=== PATIENT | female | born 1960 | race Caucasian/White ===

== ENCOUNTER 2021-03-02 17:50 | Inpatient (IN) | payer BC ==
[~2021-03-02] VITALS: Ht 157.5 cm; Wt 60.8 kg
--- NOTE | 2021-03-02 17:50 | NUR ---
1st contact with patient, AOx4, respiration:easy, c/o severe anterior chest pains after an argument with a family member. [email or web address]. EKG done.
[2021-03-02] MEDS ORDERED: NITROGLYCERIN 0.4 MG/TAB BOTTLE SL ONE ×2 (18:00→18:25)
[2021-03-02] MEDS ORDERED: ASPIRIN 325 MG TABLET PO ONE (18:00)
[2021-03-02] MEDS ORDERED: ONDANSETRON 4 MG/2 ML VIAL IV ONE (18:00)
[2021-03-02] MEDS ORDERED: MORPHINE SULFATE 2 MG/1 ML DISP.SYRIN IV ONE (18:00)
[2021-03-02] MEDS ORDERED: MORPHINE SULFATE 2 MG/1 ML DISP.SYRIN ONE (18:01)
[2021-03-02] MEDS ORDERED: ONDANSETRON 4 MG/2 ML VIAL ONE (18:01)
[2021-03-02] MEDS ORDERED: ATROPINE SULFATE 1 MG/10 ML DISP.SYRIN ONE (18:10)
--- NOTE | 2021-03-02 18:12 | NUR ---
After the 2nd dose of sublingual Nitroglycerin & IV morphine 2mg, patient's heart rate & blood pressure went down. Patient complained of nausea and severe chest pains. Her skin is now pale and moist, MD notified.
--- NOTE | 2021-03-02 18:24 | NUR ---
Patient is still complaining of severe chest pains, [email or web address].
[2021-03-02] MEDS ORDERED: ASPIRIN 325 MG TABLET ONE (18:25)
[2021-03-02] MEDS ORDERED: IV NORMAL SALINE 500 ML BAG IV ONE ×2 (18:30)
[2021-03-02] MEDS ORDERED: ATROPINE SULFATE 1 MG/10 ML DISP.SYRIN IV ONE (18:30)
[2021-03-02 18:36] LABS: MEAN CORPUSCULAR HEMOGLOBIN 28.8 uug (24.7-32.8); MEAN CORPUSCULAR VOLUME 84.7 fL (75.5-95.3); PLATELET COUNT (AUTO) 258 K/uL (179-408)
--- NOTE | 2021-03-02 18:38 | NUR ---
Patient and family were notified that as soon as her blood pressure readings are acceptable, we may give her more pain medicines. Extra warm blankets on & reassurances provided.
--- NOTE | 2021-03-02 18:40 | NUR ---
Systolic blood pressure readings are better but patient is still complaining of severe chest pains (7-9/10 pain scale). MD is aware.
[2021-03-02 18:42] LABS: CREATININE 0.7 mg/dL (0.6-1.3); POTASSIUM 3.8 mmol/L (3.5-5.1)
[2021-03-02 18:54] LABS: BILIRUBIN,DIRECT 0.1 mg/dL (0.0-0.2); BILIRUBIN,TOTAL 0.4 mg/dL (0.2-1.0); TOTAL PROTEIN, SERUM 5.7 g/dL (6.4-8.2)
--- NOTE | 2021-03-02 19:00 | NUR ---
Patient is still for CTA of chest, for COVID swab and possible [facility] admission. Hands off report given to DARWIN Rodriguez.
[2021-03-02] MEDS ORDERED: IOHEXOL 350 100 ML INFUS..BTL ONE (19:39)
[2021-03-02] MEDS ORDERED: IV NORMAL SALINE 250 ML IV ONE (19:39)
[2021-03-02] MEDS ORDERED: SWABABLE VALVE TRANSFER SET EA MC ONE (19:39)
[2021-03-02] MEDS ORDERED: HEPARIN/D5W DRIP 500 ML ONE (19:44)
[2021-03-02] MEDS ORDERED: HEPARIN/D5W 25000 UNITS/500 ML BAG IV ONE (19:45)
--- NOTE | 2021-03-02 19:51 | NUR ---
PT out of ER for CT.
[2021-03-02] MEDS ORDERED: HEPARIN SODIUM,PORCINE 5,000 UNITS/ML VIAL ONE (19:54)
--- NOTE | 2021-03-02 20:26 | NUR ---
Pt back to ER from CT.
[2021-03-02] MEDS ORDERED: HEPARIN SODIUM,PORCINE/PF 100 UNIT/ML, 5ML SYR IV ONE (20:30)
--- NOTE | 2021-03-02 20:47 | NUR ---
Called [facility] to page Shukri Uribe NP.
--- NOTE | 2021-03-02 20:53 | NUR ---
Dr. Crain on panel call with Shukri Uribe NP. Patient accepted for admission to [facility], diagnosis: chest pain, elevated troponin.
--- NOTE | 2021-03-02 21:10 | NUR ---
Report given to Ritchie GRANADOS JAYNE.
[2021-03-02] MEDS ORDERED: NITROGLYCERIN 0.4 MG/TAB BOTTLE SL PRN (21:30)
[2021-03-02] MEDS ORDERED: ZOLPIDEM 5 MG TABLET PO PRN (21:30)
[2021-03-02] MEDS ORDERED: HEPARIN/D5W DRIP 500 ML IV PRN (21:30)
[2021-03-02] MEDS ORDERED: LORAZEPAM 2 MG/1 ML VIAL IV PRN (21:30)
[2021-03-02] MEDS ORDERED: ACETAMINOPHEN 325 MG TABLET PO PRN (21:30)
[2021-03-02] MEDS ORDERED: Z GUARD REMEDY PASTE 57 GM TUBE TOP PRN (21:30)
[2021-03-02] MEDS ORDERED: MAGNESIUM HYDROXIDE 30 ML LIQUID UDC PO PRN (21:30)
[2021-03-02] MEDS ORDERED: ONDANSETRON 4 MG/2 ML VIAL IV PRN (21:30)
[2021-03-02 22:00] VITALS: BP 138/61
[2021-03-02] MEDS ORDERED: MORPHINE SULFATE 2 MG/1 ML DISP.SYRIN IV PRN (22:15)
[2021-03-02] MEDS ORDERED: LEVO50TA8 PO ×2 (22:21→22:31)
[2021-03-02] MEDS ORDERED: NITROGLYCERIN OINT 1 GM PACKET TP STA (22:24)
[2021-03-02] MEDS ORDERED: LEVO75TA7 PO (22:31)
[2021-03-02] MEDS ORDERED: LEVOTHYROXINE SODIUM 50 MCG TABLET PO ONE (23:00)
--- NOTE | 2021-03-02 23:30 | NUR ---
Admitted to room 310; accompanied by ; placed on tele; c/o pain; Uribe DIRECTOR OF PLANT OPERATIONS called and ordered to give ativan and nitrobid; home meds reconciled; on 3L O2; admission procedures done.
[2021-03-03] VITALS (7 sets, daily range): BP systolic 96–114; BP diastolic 50–65
[2021-03-03] MEDS ORDERED: PANTOPRAZOLE SODIUM 40 MG TABLET.DR PO SCH (07:00)
[2021-03-03] MEDS ORDERED: LEVOTHYROXINE SODIUM 50 MCG TABLET PO SCH ×2 (07:00→21:00)
[2021-03-03 07:03] LABS: HEMATOCRIT 34.9 % (31.2-41.9); MEAN CORPUSCULAR HEMOGLOBIN 28.9 uug (24.7-32.8); MEAN CORPUSCULAR VOLUME 84.5 fL (75.5-95.3); PLATELET COUNT (AUTO) 232 K/uL (179-408)
[2021-03-03 07:15] LABS: CREATININE 0.7 mg/dL (0.6-1.3); PHOSPHOROUS 3.8 mg/dL (2.5-4.9); POTASSIUM 3.8 mmol/L (3.5-5.1)
--- NOTE | 2021-03-03 07:30 | NUR ---
Received pt. in bed AAOx4. No SOB or chest pain reported. On 3L. NC with saturation within desire limits. Tolerating diet well with no n/v/d. IV line patent. Will continue to monitor.
[2021-03-03] MEDS ORDERED: NITROGLYCERIN OINT 1 GM PACKET TP SCH (09:00)
[2021-03-03] MEDS ORDERED: ASPIRIN 81 MG TAB.CHEW PO SCH (09:00)
--- NOTE | 2021-03-03 09:13 | NUR ---
Cardiology services, Dr. Kinsey at bedside to discuss care plan with both pt. and family present and on the phone. Stat ekg ordered done at this time and Dr. Reyes.
--- NOTE | 2021-03-03 09:29 | NUR ---
Spoke with case management Mely and informed her of [employer] Dr. Kinsey request to initiate transfer to [facility] per family request and she was also informed that family will probably give us the name of admitting physician at this medical center.
--- NOTE | 2021-03-03 10:15 | NUR ---
Provided Terrence Hui rehabilitation caseworker today with Irina Regan contact information to continue with possible transfer as requested by family.
--- NOTE | 2021-03-03 15:55 | NUR ---
pt. with request to call market development trainer and as stated by pt. " please call market development trainer echo cardiogram done and I want him to discuss the results with me". Patient educated on preliminary results and the need to wait so DrTerrence can read the results, but patient insist in having the DrTerrence called.
--- NOTE | 2021-03-03 16:13 | NUR ---
A call back from tube trailer filler and pt. was informed of echo cardiogram preliminary results and informed that He will discussed the results with her if she still here in AM.
--- NOTE | 2021-03-03 17:00 | NUR ---
A call from case management and at this time I was informed pt. transportation has been arrange with [facility] with clam picker time [id number]. to call in case of any delays or questions. ). As informed pt. will be going to room 5128 located in [address] [place] [address] [address] Chow. and to call for report at .
--- NOTE | 2021-03-03 17:20 | NUR ---
A call to [facility] at spoke with Yoselin and via 3way call report given to receiving Tarsha Fairbanks. Head to toe report given, including latest vitals signs, lab results. Nurse was informed that pt. will be going with Heparin running at 780units/hr. with next ptt to be done at 1900 our pick up and delivery driver time schedule, and advice that lab probably wont be run and receiving facility needs to follow up. [employer] station number provided in case of any other questions.
--- NOTE | 2021-03-03 18:13 | NUR ---
DCD instructions provided to patient who requested and understand transfer to [facility] process. Patient will be leaving with RAC G 18 infusing with heparin at 780units/hr. to be follow up with next ptt upon arrival, if unable to be done here. Pt. was also educated on the need of oxygen 3Liter via Nasal canula. pt. provided with transfer information including with name of admitting physician an room number where she will be going. Addendum: 03/03/21 at 1818 by JALEESA PINO RN belongings reviewed and done by arnav Cardoso.
--- NOTE | 2021-03-03 19:00 | NUR ---
Received patient sitting in bed awake and alert. Family currently at bedside. Patient is currently on 3L NC, SR on the monitor, all vitals stable. Currently running Heparin infusion @780 units/hr. Patient not complaining of SOB or signs of distress. Patient is awaiting transport to [facility].
--- NOTE | 2021-03-03 20:00 | NUR ---
Patient transported to [facility] via [facility] transport, report given to DARWIN Aguilera from [facility] ambulance #[id number]. Patient disconnected from telemetry and connected to [employer]. Heparin infusion transferred to transporting nurse's IV pump. All paperwork and imaging CD provided to transporting crew. Patient belongings taken by family. Patient transported in stable condition, A/O x4, VS stable, no SOB or signs of distress. PTT which was scheduled @1900 was not drawn by the labratory as they didn't have an available manager leasing. Lab informed me that they won't have an available manager leasing until after the patient is to be tranported. Informed transporting RN to inform receiving nurse at [facility] that they will have to draw for the PTT.
[2021-03-03] MEDS ORDERED: ATORVASTATIN 20 MG TABLET PO SCH (21:00)
[2021-03-04] MEDS ORDERED: LEVOTHYROXINE SODIUM 75 MCG TABLET PO SCH ×2 (07:00→21:00)
== END 2021-03-03 20:33 | disposition short-term general hospital (02) | DRG 281 ==
LOC: ER 17:52 → TELE-TD3 21:15
PROVIDERS: ADMIT Nurse Practitioner Family; ATTEND Nurse Practitioner Family
DX: I21.4 Non-ST elevation (NSTEMI) myocardial infarction (principal); E44.0 Moderate protein-calorie malnutrition; E03.9 Hypothyroidism, unspecified; F41.9 Anxiety disorder, unspecified; Z85.3 Personal history of malignant neoplasm of breast; Z92.3 Personal history of irradiation; G20 Parkinson's disease; E88.09 Other disorders of plasma-protein metabolism, not elsewhere classified; Z68.24 Body mass index [BMI] 24.0-24.9, adult; Z20.822 Contact with and (suspected) exposure to COVID-19; R73.9 Hyperglycemia, unspecified
CPT/HCPCS: 36415; 70030-TC; 71045; 71275; 83690; 83735; 84100; 84443; 85025; 85730; 93005; 93307; G0378; J0461; J1644; J2060; J2270; J2405; J7040; J7050; Q9967